=== PATIENT | female | born 1980 | race Caucasian/White ===

== ENCOUNTER → 2016-06-08 | Outpatient (CLI) | payer BC, OTHER ==
[~2016-06-08] MED LIST: ASP81TEC PO; BIRTH CONTROL PILL PO; HYDR-34 PO; HYOS0.1283 SL; INSASP10V SQ; INSU100C4 SQ; LEVO200T6 PO; MTF500TCR PO; MULT-974 PO; ONDA8TAB13 PO; PRENATAL VITAMINS; SIMV40TA4 PO
--- NOTE | 2016-06-08 16:03 | Diagnostic Imaging Report ---
EXAMINATION: Right lower extremity duplex venous ultrasound. TECHNIQUE: DVT protocol. Multiple sonographic images with color Doppler and waveform interrogation were performed of the right lower extremity veins with compression and augmentation maneuvers. INDICATION: Right leg swelling. FINDINGS: The right lower extremity veins from the groin to below the knee veins were examined with normal color-flow, compressibility and normal waveform demonstrated. The great saphenous vein is patent. IMPRESSION: No evidence of DVT in the right lower extremity. Dictated by: Dictated on workstation # [id number]
== END ==
LOC: RAD 15:34
PROVIDERS: ATTEND Family Medicine
DX: R22.41 Localized swelling, mass and lump, right lower limb (principal)

== ENCOUNTER → 2018-09-27 | Outpatient (CLI) | payer BC, OTHER ==
--- NOTE | 2018-09-27 15:09 | Diagnostic Imaging Report ---
PROCEDURE: US Non-ob pelvis comp/trans. INDICATION: Menorrhagia. TECHNIQUE: Multiple real time pandya scale sonographic images were obtained of the pelvis transabdominally and transvaginally. CORRELATION STUDY: None. FINDINGS: UTERUS: 7.6 x 5.4 x 4.1 cm. The uterus appears unremarkable. ENDOMETRIUM: 8 mm. The endometrium appearing unremarkable. RIGHT OVARY: 3.5 x 2.2 x 2.1 cm. Hypoechoic mass, compatible with small cyst, at 1.4 x 1.3 x 0.9 cm. Normal blood flow. LEFT OVARY: 3.8 x 1.6 x 1.6 cm. Small follicles are present, likely physiologic. Normal blood flow. No significant free pelvic fluid. IMPRESSION: 1. Physiologic findings of the pelvis. Dictated by: Dictated on workstation # [id number]
--- NOTE | 2018-09-27 19:07 | Diagnostic Imaging Report ---
INDICATION: Routine screening. COMPARISON: No prior mammograms are available for comparison. This is a baseline study. TECHNIQUE: 2-D and 3-D bilateral screening mammography was performed. The current study was also evaluated with a Computer Aided Detection (CAD) system. 3-D tomosynthesis was also performed and reviewed. FINDINGS: Scattered fibroglandular densities are identified bilaterally. Intraparenchymal lymph node in the upper-outer right breast is noted. No mass or malignant-appearing microcalcifications are seen. Axillae are unremarkable. IMPRESSION: No mammographic features suspicious for malignancy are identified. ACR BI-RADS Category 2: Benign findings. Result letter will be mailed to the patient. Note: At least 10% of breast cancer is not imaged by mammography. Dictated by: Dictated on workstation # [id number]
== END ==
LOC: RAD 11:08
PROVIDERS: ATTEND Obstetrics & Gynecology
DX: Z12.31 Encounter for screening mammogram for malignant neoplasm of breast (principal); N92.0 Excessive and frequent menstruation with regular cycle
CPT/HCPCS: 76830; 76856; 77067

== ENCOUNTER 2018-10-18 11:15 | Day surgery (SDC) | payer BC, OTHER ==
[~2018-10-18] VITALS: Ht 162.6 cm; Wt 108.9 kg
[2018-10-18] VITALS (10 sets, daily range): BP systolic 98–116; BP diastolic 60–75
[~2018-10-18 11:15] MED LIST changes: +ASPI-999 PO; +INSU100I10 SQ; +INSU100I23 SQ; +LEVO100T7 PO; +MULT1TAB69 PO; +NFMET1000 PO
[2018-10-18] MEDS ORDERED: LIDOCAINE PF 2% 5 ML (XYLOCAINE) VIAL ONE (11:42)
[2018-10-18] MEDS ORDERED: ONDANSETRON 4 MG/2 ML (SDV) Z0FRAN ONE (11:42)
[2018-10-18] MEDS ORDERED: DEXAMETHASONE 10 MG/ML (DECADRON) 1 ML VIAL ONE (11:42)
[2018-10-18] MEDS ORDERED: SEVOFLURANE (ULTANE) 15 ML INHAL SOLN ONE (11:42)
[2018-10-18] MEDS ORDERED: proPOfol 200 MG/20 ML (DIPRIVAN) VIAL IV ONE (11:42)
[2018-10-18] MEDS ORDERED: ceFAZolin INJECTION 1,000 MG in WATER (STERILE) FOR INJECTION 10 ML IV ONE ×2 (11:45→12:15)
[2018-10-18] MEDS ORDERED: LACTATED RINGERS 1,000 ML IV PRN (12:08)
[2018-10-18] MEDS ORDERED: SCOPOLAMINE 1.5 MG (TRANSDERM-SCOP) PATCH TOP ONE (12:15)
[2018-10-18] MEDS ORDERED: FAMOTIDINE 20MG/2ML IV (PEPCID) IV ONE (12:15)
[2018-10-18] MEDS ORDERED: ONDANSETRON 4 MG/2 ML (SDV) Z0FRAN IV ONE (12:15)
[2018-10-18] MEDS ORDERED: fentaNYL INJECTION 100 MCG/2 ML AMP ONE (12:31)
[2018-10-18] MEDS ORDERED: MIDAZOLAM 2 MG/2 ML (VERSED) VIAL ONE (12:31)
[2018-10-18] MEDS ORDERED: PROPOFOL INJECTION 100 ML IV ONE (13:27)
[2018-10-18] MEDS ORDERED: morphine INJ 10 MG/ML 1ML (SYR OR VIAL) ONE (13:47)
[2018-10-18] MEDS ORDERED: HYDROmorphone 2 MG/ML VIAL (DILAUDID) IV ONE (14:00)
[2018-10-18] MEDS ORDERED: morphine INJ 10 MG/ML 1ML (SYR OR VIAL) IVP ONE ×2 (14:00)
[2018-10-18] MEDS ORDERED: ONDANSETRON 4 MG/2 ML (SDV) Z0FRAN IVP PRN ×2 (14:00)
--- NOTE | 2018-10-18 14:03 | Progress Note-Pre Operative ---
Pre-Operative Progress Note H&P Reviewed The H&P was reviewed, patient examined and no changes noted. Date Seen by Provider: Oct 18, 2018 Time Seen by Provider: 12:45 Date H&P Reviewed: Oct 18, 2018 Time H&P Reviewed: 12:30 Pre-Operative Diagnosis: LENA Vargas DO Oct 18, 2018 14:03
--- NOTE | 2018-10-18 14:03 | Operative Report ---
Operative Report Date of Procedure/Surgery Oct 18, 2018 Surgeon (s) LENA DOMÍNGUEZ DO Pain Management Nurse (s): NA Post-Operative Diagnosis Menorrhagia Procedure Performed hysteroscopy, dilation and curettage, Vivian ablation Description of Procedure Anesthesia Type: General Estimated blood loss (mL): minimal Specimen(s) collected/removed endometrial curettings Allergies and Home Medications Allergies Coded Allergies: No Known Drug Allergies (Verified , 11/29/07) Home Medications Aspirin 81 Mg Tab.chew, 81 MG PO DAILY, (Reported) Insulin Glargine,Hum.rec.anlog 100 Unit/1 Ml Insuln.pen, 60 UNIT SQ DAILY, (Reported) Insulin Glargine,Hum.rec.anlog 100 Unit/1 Ml Insuln.pen, 10 UNIT SQ HS, (Reported) Insulin Lispro 100 Unit/1 Ml Insuln.pen, 1-15 UNIT SQ TIDAC PRN for blood sugar, (Reported) Levothyroxine Sodium Unknown Strength Tablet, 1 TAB PO DAILY, (Reported) Metformin HCl 1,000 Mg Tab, 1,000 MG PO BID, (Reported) Multivitamin 1 Each Tablet, 1 EACH PO DAILY, (Reported) LENA DOMÍNGUEZ DO Oct 18, 2018 14:03
[2018-10-18] MEDS ORDERED: ACET-2267 PO (14:06)
[2018-10-18] MEDS ORDERED: IBUP-1773 PO (14:06)
[2018-10-18] MEDS ORDERED: OXYC-529 PO (14:07)
--- NOTE | 2018-10-18 14:09 | Anesthesia-General Post-Op ---
General Patient Condition Mental Status/LOC: Same as Preop Cardiovascular: Satisfactory Nausea/Vomiting: Absent Respiratory: Satisfactory Pain: Controlled Complications: Absent Post Op Complications Complications None Follow Up Care/Instructions Patient Instructions None needed. Anesthesia/Patient Condition Patient Condition Patient is doing well, no complaints, stable vital signs, no apparent adverse anesthesia problems. No complications reported per nursing. SUELLEN RAMIREZ CRNA Oct 18, 2018 14:09
[2018-10-18] MEDS ORDERED: KETOROLAC 30 MG/ML VIAL IVP ONE (14:15)
== END 2018-10-18 15:35 | disposition home or self-care (01) ==
LOC: SDC 11:15
PROVIDERS: ATTEND Obstetrics & Gynecology
DX: N85.8 Other specified noninflammatory disorders of uterus (principal); N92.0 Excessive and frequent menstruation with regular cycle; E03.9 Hypothyroidism, unspecified; E11.9 Type 2 diabetes mellitus without complications; Z79.4 Long term (current) use of insulin; Z79.899 Other long term (current) drug therapy; Z79.82 Long term (current) use of aspirin; Z80.42 Family history of malignant neoplasm of prostate; Z11.2 Encounter for screening for other bacterial diseases
CPT/HCPCS: 84703; 87081

== ENCOUNTER → 2019-06-03 | Outpatient (CLI) | payer BC, OTHER ==
[~2019-06-03] MED LIST changes: +ACET-2267 PO; +IBUP-1773 PO; +OXYC5TAB96 PO
--- NOTE | 2019-06-03 13:24 | Diagnostic Imaging Report ---
INDICATION: Cough PA and lateral views of the chest obtained. Comparison is made to study of 02/07/2007. FINDINGS: Heart size and pulmonary vascularity are within normal limits, and the lungs are clear, bilaterally. IMPRESSION: Unremarkable chest. Dictated by: Dictated on workstation # [id number]
== END ==
LOC: RAD 12:32
PROVIDERS: ATTEND Family Medicine
DX: R05 Cough (principal)
CPT/HCPCS: 71046

== ENCOUNTER → 2020-10-04 | Outpatient (CLI) | payer BC, OTHER ==
[~2020-10-04] MED LIST changes: +MULT-567 PO; -MULT1TAB69 PO; +OXC5T PO; -OXYC5TAB96 PO
--- NOTE | 2020-10-05 13:34 | Diagnostic Imaging Report ---
INDICATION: Routine screening. COMPARISON: 10/01/2019 and 09/27/2018. TECHNIQUE: 2D and 3D bilateral screening mammography was performed with CAD. FINDINGS: Both breasts are heterogeneously dense, limiting the sensitivity of mammography. The intraparenchymal lymph node in the upper outer right breast at posterior depth is stable. No spiculated mass or malignant-appearing microcalcifications are seen. The axillae are unremarkable. IMPRESSION: No mammographic features suspicious for malignancy are identified. ACR BI-RADS Category 2: Benign findings. Result letter will be mailed to the patient. Note: At least 10% of breast cancer is not imaged by mammography. Dictated by: Dictated on workstation # [id number]
== END ==
LOC: RAD 15:45
PROVIDERS: ATTEND Obstetrics & Gynecology
DX: Z12.31 Encounter for screening mammogram for malignant neoplasm of breast (principal)
CPT/HCPCS: 77063; 77067

== ENCOUNTER → 2021-10-11 | Outpatient (CLI) | payer BC, OTHER ==
--- NOTE | 2021-10-11 16:15 | Diagnostic Imaging Report ---
INDICATION: Routine screening. Comparison is made with prior mammograms from 10/04/2020 and 10/01/2019. 2-D and 3-D bilateral screening mammography was performed with CAD. Both breasts are heterogeneously dense, limiting the sensitivity of mammography. Intraparenchymal lymph node outer right breast is stable. The overall parenchymal pattern is stable. No mass or malignant-appearing microcalcifications are seen. Axillae are unremarkable. IMPRESSION: No mammographic features suspicious for malignancy are identified. ACR BI-RADS Category 2: Benign findings. Result letter will be mailed to the patient. Note: At least 10% of breast cancer is not imaged by mammography. BI-RADS Category 2 Dictated by: Dictated on workstation # [id number]
== END ==
LOC: RAD 15:45
PROVIDERS: ATTEND Nurse Practitioner Women's Health
DX: Z12.31 Encounter for screening mammogram for malignant neoplasm of breast (principal)
CPT/HCPCS: 77063; 77067

== ENCOUNTER → 2022-10-16 | Outpatient (CLI) | payer BC ==
--- NOTE | 2022-10-17 16:20 | Diagnostic Imaging Report ---
INDICATION: Routine screening. COMPARISON: 10/11/2021 and 10/04/2020. TECHNIQUE: 2D and 3D bilateral screening mammography was performed with CAD. FINDINGS: Both breasts are heterogeneously dense, limiting the sensitivity of mammography. The parenchymal pattern is stable. No mass or malignant-appearing microcalcifications are seen. The axillae are unremarkable. IMPRESSION: No mammographic features suspicious for malignancy are identified. ACR BI-RADS Category 1: Negative. Result letter will be mailed to the patient. Note: At least 10% of breast cancer is not imaged by mammography. Dictated by: Dictated on workstation # [id number]
== END ==
LOC: RAD 14:47
PROVIDERS: ATTEND Nurse Practitioner Women's Health
DX: Z12.31 Encounter for screening mammogram for malignant neoplasm of breast (principal)
CPT/HCPCS: 77063; 77067